=== PATIENT | male | born 1945 | race Caucasian/White ===

== ENCOUNTER 2019-04-21 07:11 | Day surgery (SDC) | payer OTHER | END 2019-04-21 11:00 | disposition home or self-care (01) | LOC: JASU-SURG 07:11 ==

== ENCOUNTER 2022-04-19 21:53 | Inpatient (IN) | payer OTHER ==
[2022-04-19 21:59] VITALS: BMI 27.3
[2022-04-19 23:14] LABS: BASO % 0.6 % (0-2.0); HEMATOCRIT 45.1 % (35.4-49); LYMPH % 25.3 % (8-40); MCH 29.9 pg (25.7-33.7); MCHC 33.3 g/dl (32.0-35.9); MEAN CELL VOLUME 89.7 fl (80-96); MEAN PLT VOLUME 8.6 fl (7.5-11.1); MONO % 8.4 % (3.8-10.2); NEUT % 63.7 % (42.8-82.8); PLATELET COUNT 174 10^3/uL (134-434); RBC 5.03 M/mm3 (4.00-5.60); RDW 14.3 % (11.9-15.9); WHITE BLOOD COUNT 7.4 K/mm3 (4.0-10.0)
[2022-04-19 23:16] LABS: VENOUS BASE EXCESS 0.9 mmol/L (-2-2); VENOUS O2 SATURATION 71.9 % (70-80); VENOUS PCO2 47.1 mmHg (38-52); VENOUS PH 7.373 (7.310-7.410)
[2022-04-19 23:22] LABS: INR 1.07 (0.83-1.09); PROTHROMBIN TIME (PATIENT) 12.3 SEC (9.7-13.0)
[2022-04-19 23:25] LABS: ACTIVATED PTT 33.2 SECONDS (25.2-36.5)
[2022-04-19 23:40] LABS: ALBUMIN 3.6 g/dl (3.4-5.0); BLOOD UREA NITROGEN 27.1 mg/dL (7-18); CALCIUM 10.4 mg/dL (8.5-10.1); MAGNESIUM 2.2 mg/dL (1.8-2.4)
[2022-04-19 23:43] LABS: CREATININE 1.1 mg/dL (0.55-1.3)
[2022-04-19 23:45] LABS: BILIRUBIN,TOTAL 0.5 mg/dL (0.2-1)
[2022-04-19 23:49] LABS: N-TERMINAL BNP 377.7 pg/ml (5-450)
[2022-04-20] MEDS ORDERED: DEXAMETHASONE SOD PHOSPHATE 4 MG/1 ML VIAL IVPUSH ONE (00:40)
[2022-04-20] MEDS ORDERED: DEXAMETHASONE SOD PHOSPHATE 10 MG/1 ML VIAL ONE (00:44)
[2022-04-20 02:48] LABS: URINE APPEARANCE CLEAR; URINE BILIRUBIN NEGATIVE (NEGATIVE); URINE COLOR YELLOW; URINE GLUCOSE (UA) NEGATIVE (NEGATIVE); URINE KETONE TRACE (NEGATIVE); URINE LEUK ESTERASE NEGATIVE (NEGATIVE); URINE NITRITE NEGATIVE (NEGATIVE); URINE PROTEIN NEGATIVE (NEGATIVE); URINE UROBILINOGEN 0.2 mg/dL (0.2-1.0)
[2022-04-20] MEDS ORDERED: ACETAMINOPHEN 325 MG TABLET (FP) PO PRN (03:16)
[2022-04-20] MEDS ORDERED: POLYETHYLENE GLYCOL (HEALTHYLAX) 3350 17 GM PACKET PO PRN (03:16)
[2022-04-20] MEDS ORDERED: DEXTROSE 5%-NORMAL SALINE 1,000 ML IV SCH (03:30)
[2022-04-20] MEDS ORDERED: guaiFENesin/D-METHORPHAN HB 10 ML UNIT-DOSE CUPS PO PRN (03:47)
[2022-04-20] MEDS ORDERED: METOPROLOL TARTRATE 50 MG TABLET (FP) ONE (04:03)
[2022-04-20] MEDS ORDERED: ALBUTEROL SO4 HFA INHALER IH PRN (05:39)
[2022-04-20] MEDS ORDERED: FOLIC ACID INJECTION - 1 MG, THIAMINE HCL 100 MG, MULTIVIT INJECTION ADULT 10 ML in SOD... IVPB ONE (05:41)
[2022-04-20] MEDS ORDERED: HEPARIN NA (PORCINE) 5,000 UNITS/ML 1ML VIAL ONE (06:18)
[2022-04-20] MEDS: HEPARIN NA (PORCINE) 5,000 UNITS/ML 1ML VIAL SQ SCH ×3 (06:32→21:44)
[2022-04-20] MEDS ORDERED: PNEUMOC 20-VAL CONJ-DIP CRM/PF 0.5 ML SYRINGE IM ONE (06:39)
[2022-04-20 06:46] LABS: BASO % 0.5 % (0-2.0); EOS % 0.1 % (0-4.5); HEMATOCRIT 44.5 % (35.4-49); LYMPH % 10.4 % (8-40); MCH 30.2 pg (25.7-33.7); MCHC 33.7 g/dl (32.0-35.9); MEAN CELL VOLUME 89.6 fl (80-96); MEAN PLT VOLUME 8.7 fl (7.5-11.1); MONO % 0.9 % (3.8-10.2); NEUT % 88.1 % (42.8-82.8); PLATELET COUNT 181 10^3/uL (134-434); RBC 4.96 M/mm3 (4.00-5.60); WHITE BLOOD COUNT 7.1 K/mm3 (4.0-10.0)
[2022-04-20 07:16] LABS: BLOOD UREA NITROGEN 24.7 mg/dL (7-18)
[2022-04-20 07:19] LABS: CREATININE 0.8 mg/dL (0.55-1.3); PHOSPHOROUS 2.5 mg/dL (2.5-4.9)
[2022-04-20] MEDS: METOPROLOL TARTRATE 50 MG TABLET (FP) PO SCH ×2 (09:18→21:44)
[2022-04-20] MEDS: LISINOPRIL 20 MG TABLET PO SCH (09:19)
[2022-04-20] MEDS ORDERED: METOPROLOL TARTRATE 50 MG TABLET (FP) PO SCH (10:00)
[2022-04-20] MEDS: amLODIPine BESYLATE 5 MG TABLET (FP) PO SCH (11:11)
[2022-04-20] MEDS ORDERED: REMDESIVIR 200 MG in SODIUM CHLORIDE 250 ML IVPB ONE (12:44)
[2022-04-20] MEDS ORDERED: SODIUM CHLORIDE 0.45% 1,000 ML IV SCH (13:30)
[2022-04-20] MEDS: LORazepam 1 MG TABLET PO PRN ×2 (18:27→23:40)
[2022-04-21] MEDS: HEPARIN NA (PORCINE) 5,000 UNITS/ML 1ML VIAL SQ SCH (06:45)
[2022-04-21 07:52] LABS: INR 1.03 (0.83-1.09); PROTHROMBIN TIME (PATIENT) 11.9 SEC (9.7-13.0)
[2022-04-21 07:53] LABS: ACTIVATED PTT 29.4 SECONDS (25.2-36.5)
[2022-04-21 09:26] VITALS: BP 147/103; PULSE 134; RESP 18; TEMP 97.8
[2022-04-21] MEDS: amLODIPine BESYLATE 5 MG TABLET (FP) PO SCH (09:26)
[2022-04-21] MEDS: METOPROLOL TARTRATE 50 MG TABLET (FP) PO SCH (09:26)
[2022-04-21] MEDS: LISINOPRIL 20 MG TABLET PO SCH (09:26)
[2022-04-21] MEDS ORDERED: THIAMINE HCL 100 MG TABLET (FP) PO SCH (10:00)
[2022-04-21] MEDS ORDERED: MULTIVITAMINS THER W-MINERALS COMBO TABLET (FP) PO SCH (10:00)
[2022-04-21] MEDS ORDERED: DEXAMETHASONE SOD PHOSPHATE 10 MG/1 ML VIAL IM SCH (10:00)
[2022-04-21] MEDS ORDERED: FOLIC ACID 1 MG TABLET (FP) PO SCH (10:00)
[2022-04-21] MEDS ORDERED: chlordiazePOXIDE HCL 25 MG CAPSULE PO SCH (12:00)
[2022-04-21] MEDS ORDERED: amLODIPine BESYLATE 5 MG TABLET (FP) PO SCH (12:36)
[2022-04-21] MEDS ORDERED: REMDESIVIR 100 MG in SODIUM CHLORIDE 250 ML IVPB SCH (13:00)
== END 2022-04-21 14:41 | disposition home or self-care (01) | DRG 177 ==
LOC: JER 21:53 → JERBED 04-20 00:41 → J4W 04-20 08:13
PROVIDERS: ADMIT Family Medicine; ATTEND Family Medicine
PROC: XW033E5 Introduction of Remdesivir Anti-infective into Peripheral Vein, Percutaneous Approach, New Technology Group 5 (ICD-10-PCS; principal; 2022-04-19)
DX: U07.1 COVID-19 (principal); J12.82 Pneumonia due to coronavirus disease 2019; I10 Essential (primary) hypertension; F10.220 Alcohol dependence with intoxication, uncomplicated; C44.91 Basal cell carcinoma of skin, unspecified; R09.02 Hypoxemia; E86.0 Dehydration; R06.02 Shortness of breath; R06.09 Other forms of dyspnea; R00.0 Tachycardia, unspecified; R68.83 Chills (without fever); R05.9 Cough, unspecified
CPT/HCPCS: 0241U-QW; 36415; 71045-TC-FY; 71275-TC; 80048; 80053; 81003; 82728; 82803; 83605; 83615; 83735; 83880; 84100; 84443; 84484; 85025; 85610; 85730; 86140; 86850; 86900; 86901; 87040; 87086; 93005; 93010; 99285-25; C9399; J1644; Q9967

== ENCOUNTER 2023-09-12 13:50 | Inpatient (IN) | payer OTHER ==
[2023-09-12] MEDS ORDERED: ROCURONIUM BROMIDE 50 MG/5 ML SYRINGE ONE (13:54)
[2023-09-12] MEDS ORDERED: fentaNYL CITRATE 250 MCG/5 ML VIAL ONE (13:57)
[2023-09-12] MEDS ORDERED: PHYTONADIONE 10 MG/1 ML AMP IVPB ONE (14:23)
[2023-09-12] MEDS ORDERED: PHYTONADIONE IVPB ONE (14:25)
[2023-09-12] MEDS ORDERED: DEXTROSE 5% IVPB ONE (14:25)
[2023-09-12] MEDS ORDERED: WATER IVPB ONE (14:25)
[2023-09-12] MEDS ORDERED: HUM PROTHROMBIN CPLX(PCC)4FACT 2,000 UNIT/74.7 ML VIAL IV ONE (14:25)
[2023-09-12 14:29] LABS: BASO % 0.9 % (0-2.0); EOS % 1.4 % (0-4.5); HEMATOCRIT 45.9 % (35.4-49); HEMOGLOBIN 15.1 GM/dL (11.7-16.9); LYMPH % 13.8 % (8-40); MCH 30.3 pg (25.7-33.7); MCHC 32.9 g/dl (32.0-35.9); MEAN PLT VOLUME 9.7 fl (7.5-11.1); MONO % 6.9 % (3.8-10.2); PLATELET COUNT 175 10^3/uL (134-434); RBC 4.99 M/mm3 (4.00-5.60); RDW 14.1 % (11.9-15.9); WHITE BLOOD COUNT 9.6 K/mm3 (4.0-10.0)
[2023-09-12] MEDS ORDERED: LABETALOL HCL 5 MG/1 ML (100MG/20 ML VIAL) IVPUSH ONE (14:30)
[2023-09-12] MEDS ORDERED: LABETALOL HCL 5 MG/1 ML (100MG/20 ML VIAL) ONE (14:33)
[2023-09-12] MEDS: SODIUM CHLORIDE 1,000 ML IV SCH (14:39)
[2023-09-12] MEDS ORDERED: PHYTONADIONE 10 MG/1 ML AMP ONE (14:42)
[2023-09-12 14:46] LABS: INR 2.56 (0.83-1.09); PROTHROMBIN TIME (PATIENT) 29.4 SEC (9.7-13.0)
[2023-09-12 14:48] LABS: ACTIVATED PTT 35.5 SECONDS (25.2-36.5)
[2023-09-12] MEDS ORDERED: levETIRAcetam 500 MG/5 ML INJECTION VIAL IVPB ONE ×2 (14:49→15:08)
[2023-09-12] MEDS ORDERED: ROCURONIUM BROMIDE 50 MG/5 ML VIAL IV ONE (14:58)
[2023-09-12] MEDS ORDERED: ETOMIDATE 20 MG/10 ML VIAL IVPUSH ONE (14:58)
[2023-09-12 15:04] LABS: POTASSIUM 4.4 mmol/L (3.5-5.1)
[2023-09-12 15:06] LABS: CALCIUM 10.4 mg/dL (8.5-10.1)
[2023-09-12 15:08] LABS: BLOOD UREA NITROGEN 18.5 mg/dL (7-18)
[2023-09-12] MEDS ORDERED: ROCURONIUM BROMIDE 50 MG/5 ML VIAL IVPUSH ONE (15:08)
[2023-09-12 15:10] LABS: CREATININE 0.8 mg/dL (0.55-1.3)
[2023-09-12 15:11] LABS: TOT PROT 7.4 g/dl (6.4-8.2)
[2023-09-12 15:12] LABS: BILIRUBIN,TOTAL 1.2 mg/dL (0.2-1)
[2023-09-12] MEDS ORDERED: PROPOFOL 1,000,000 MCG/100 ML VIAL ONE (15:19)
[2023-09-12] MEDS ORDERED: MANNITOL 25% 12.5 GM/50 ML VIAL IVPB ONE (15:34)
[2023-09-12] MEDS: PROPOFOL 1,000,000 MCG/100 ML VIAL IVPB SCH (15:37)
[2023-09-12 17:14] LABS: URINE APPEARANCE CLEAR; URINE BILIRUBIN NEGATIVE (NEGATIVE); URINE COLOR YELLOW; URINE GLUCOSE (UA) NEGATIVE (NEGATIVE); URINE KETONE NEGATIVE (NEGATIVE); URINE LEUK ESTERASE NEGATIVE (NEGATIVE); URINE NITRITE NEGATIVE (NEGATIVE); URINE PROTEIN TRACE (NEGATIVE); URINE UROBILINOGEN 0.2 mg/dL (0.2-1.0)
[2023-09-12] MEDS ORDERED: FOSPHENYTOIN SODIUM 1,000 MG in SODIUM CHLORIDE 100 ML IVPB ONE (17:48)
[2023-09-12 18:15] LABS: URINE APPEARANCE CLEAR; URINE BILIRUBIN NEGATIVE (NEGATIVE); URINE COLOR YELLOW; URINE GLUCOSE (UA) NEGATIVE (NEGATIVE); URINE KETONE NEGATIVE (NEGATIVE); URINE LEUK ESTERASE NEGATIVE (NEGATIVE); URINE NITRITE NEGATIVE (NEGATIVE); URINE PROTEIN TRACE (NEGATIVE); URINE UROBILINOGEN 0.2 mg/dL (0.2-1.0)
[2023-09-12] MEDS ORDERED: PNEUMOC 20-VAL CONJ-DIP CRM/PF 0.5 ML SYRINGE IM ONE (20:13)
[2023-09-12] MEDS: MUPIROCIN 2% TOPICAL OINTMENT FOR DECOLONIZATION NS SCH (21:54)
[2023-09-12] MEDS: CHLORHEXIDINE GLUCONATE 4% CLEANSER FOR DECOLONIZATION TP SCH (21:55)
[2023-09-12] MEDS: METOPROLOL TARTRATE 50 MG TABLET (FP) PO SCH (21:57)
[2023-09-13] MEDS: FOSPHENYTOIN SODIUM 100 MG/2 ML VIAL IVPUSH SCH ×3 (01:56→17:49)
[2023-09-13] MEDS ORDERED: ACETAMINOPHEN 1000 MG/100 ML BAG IVPB ONE (02:29)
[2023-09-13 07:21] LABS: BASO % 0.3 % (0-2.0); EOS % 0.1 % (0-4.5); HEMATOCRIT 39.9 % (35.4-49); HEMOGLOBIN 13.3 GM/dL (11.7-16.9); LYMPH % 8.9 % (8-40); MCH 30.7 pg (25.7-33.7); MCHC 33.5 g/dl (32.0-35.9); MEAN CELL VOLUME 91.9 fl (80-96); MEAN PLT VOLUME 9.1 fl (7.5-11.1); MONO % 8.8 % (3.8-10.2); NEUT % 81.9 % (42.8-82.8); PLATELET COUNT 152 10^3/uL (134-434); RBC 4.34 M/mm3 (4.00-5.60)
[2023-09-13 07:47] LABS: POTASSIUM 3.8 mmol/L (3.5-5.1)
[2023-09-13 07:51] LABS: BLOOD UREA NITROGEN 18.6 mg/dL (7-18)
[2023-09-13 07:54] LABS: CREATININE 0.9 mg/dL (0.55-1.3); PHOSPHOROUS 2.7 mg/dL (2.5-4.9)
[2023-09-13 07:55] LABS: BILIRUBIN,TOTAL 1.5 mg/dL (0.2-1); TOT PROT 5.9 g/dl (6.4-8.2)
[2023-09-13 08:07] LABS: CALCIUM 9.3 mg/dL (8.5-10.1)
[2023-09-13] MEDS: METOPROLOL TARTRATE 50 MG TABLET (FP) PO SCH ×2 (10:07→21:41)
[2023-09-13] MEDS: PROPOFOL 1,000,000 MCG/100 ML VIAL IVPB SCH (10:07)
[2023-09-13] MEDS: MUPIROCIN 2% TOPICAL OINTMENT FOR DECOLONIZATION NS SCH ×2 (10:08→21:41)
[2023-09-13] MEDS: ACETAMINOPHEN 1000 MG/100 ML BAG IVPB PRN ×2 (13:15→22:21)
[2023-09-13] MEDS: SODIUM CHLORIDE 1,000 ML IV SCH (17:49)
[2023-09-13] MEDS: CHLORHEXIDINE GLUCONATE 4% CLEANSER FOR DECOLONIZATION TP SCH (21:41)
[2023-09-14] MEDS: FOSPHENYTOIN SODIUM 100 MG/2 ML VIAL IVPUSH SCH ×3 (02:55→17:22)
[2023-09-14] MEDS: ACETAMINOPHEN 1000 MG/100 ML BAG IVPB PRN (05:33)
[2023-09-14 07:22] LABS: BASO % 0.3 % (0-2.0); EOS % 0.1 % (0-4.5); HEMATOCRIT 41.9 % (35.4-49); HEMOGLOBIN 13.9 GM/dL (11.7-16.9); LYMPH % 7.5 % (8-40); MCH 30.6 pg (25.7-33.7); MCHC 33.2 g/dl (32.0-35.9); MEAN CELL VOLUME 92.2 fl (80-96); MEAN PLT VOLUME 9.5 fl (7.5-11.1); MONO % 9.8 % (3.8-10.2); NEUT % 82.3 % (42.8-82.8); PLATELET COUNT 140 10^3/uL (134-434); RBC 4.54 M/mm3 (4.00-5.60); RDW 13.6 % (11.9-15.9); WHITE BLOOD COUNT 13.1 K/mm3 (4.0-10.0)
[2023-09-14 07:32] LABS: POTASSIUM 3.7 mmol/L (3.5-5.1)
[2023-09-14 07:37] LABS: CALCIUM 9.8 mg/dL (8.5-10.1)
[2023-09-14 07:38] LABS: ALBUMIN 3.1 g/dl (3.4-5.0); BLOOD UREA NITROGEN 13.6 mg/dL (7-18)
[2023-09-14 07:41] LABS: CREATININE 0.7 mg/dL (0.55-1.3); PHOSPHOROUS 2.3 mg/dL (2.5-4.9)
[2023-09-14 07:42] LABS: TOT PROT 6.4 g/dl (6.4-8.2)
[2023-09-14 08:05] LABS: BILIRUBIN,TOTAL 2.1 mg/dL (0.2-1)
[2023-09-14] MEDS: PROPOFOL 1,000,000 MCG/100 ML VIAL IVPB SCH (09:46)
[2023-09-14] MEDS: METOPROLOL TARTRATE 50 MG TABLET (FP) PO SCH (09:46)
[2023-09-14] MEDS: MUPIROCIN 2% TOPICAL OINTMENT FOR DECOLONIZATION NS SCH ×2 (09:46→21:34)
[2023-09-14] MEDS ORDERED: ACETAMINOPHEN 1000 MG/100 ML BAG IVPB STA (16:45)
[2023-09-14] MEDS: SODIUM CHLORIDE 1,000 ML IV SCH (19:15)
[2023-09-14] MEDS ORDERED: LABETALOL HCL 20 MG/4 ML VIAL IVPUSH ONE (20:14)
[2023-09-14] MEDS ORDERED: LABETALOL HCL 5 MG/1 ML (200MG/40ML VIAL) IVPB ONE (20:21)
[2023-09-14] MEDS: LABETALOL HCL 200 MG TABLET (FP) PO SCH ×2 (21:33→21:39)
[2023-09-14] MEDS: CHLORHEXIDINE GLUCONATE 4% CLEANSER FOR DECOLONIZATION TP SCH (21:34)
[2023-09-14] MEDS: ARTIFICIAL TEARS OPHTHALMIC DROPS OU SCH (21:34)
[2023-09-14] MEDS: LABETALOL HCL 100 MG TABLET (FP) PO SCH ×2 (21:45→22:20)
[2023-09-14] MEDS ORDERED: LABETALOL HCL 200 MG TABLET (FP) PO SCH (22:00)
[2023-09-15] MEDS: FOSPHENYTOIN SODIUM 100 MG/2 ML VIAL IVPUSH SCH ×3 (01:24→17:47)
[2023-09-15] MEDS ORDERED: ACETAMINOPHEN 325 MG TABLET (FP) PO PRN (05:45)
[2023-09-15 06:58] LABS: HEMATOCRIT 42.1 % (35.4-49); HEMOGLOBIN 13.9 GM/dL (11.7-16.9); MCH 30.2 pg (25.7-33.7); MCHC 32.9 g/dl (32.0-35.9); MEAN CELL VOLUME 91.9 fl (80-96); MEAN PLT VOLUME 9.5 fl (7.5-11.1); PLATELET COUNT 157 10^3/uL (134-434); RBC 4.58 M/mm3 (4.00-5.60); RDW 14.1 % (11.9-15.9); WHITE BLOOD COUNT 13.2 K/mm3 (4.0-10.0)
[2023-09-15 07:06] LABS: INR 1.11 (0.83-1.09); PROTHROMBIN TIME (PATIENT) 12.9 SEC (9.7-13.0)
[2023-09-15 07:25] LABS: POTASSIUM 3.5 mmol/L (3.5-5.1)
[2023-09-15 07:27] LABS: CALCIUM 10.2 mg/dL (8.5-10.1)
[2023-09-15 07:28] LABS: ALBUMIN 2.8 g/dl (3.4-5.0); BLOOD UREA NITROGEN 21.8 mg/dL (7-18); MAGNESIUM 2.2 mg/dL (1.8-2.4)
[2023-09-15 07:31] LABS: CREATININE 0.6 mg/dL (0.55-1.3); PHOSPHOROUS 2.2 mg/dL (2.5-4.9)
[2023-09-15 07:32] LABS: TOT PROT 6.2 g/dl (6.4-8.2)
[2023-09-15 07:48] LABS: BILIRUBIN,TOTAL 1.1 mg/dL (0.2-1)
[2023-09-15] MEDS ORDERED: NAPH,MB-DB/K PH,MBDB POWDER PACKET NGT ONE (08:15)
[2023-09-15] MEDS: MUPIROCIN 2% TOPICAL OINTMENT FOR DECOLONIZATION NS SCH ×2 (09:14→22:18)
[2023-09-15] MEDS: LABETALOL HCL 100 MG TABLET (FP) PO SCH ×2 (09:14→22:18)
[2023-09-15] MEDS: ARTIFICIAL TEARS OPHTHALMIC DROPS OU SCH ×2 (09:16→22:18)
[2023-09-15] MEDS: ACETAMINOPHEN 1000 MG/100 ML BAG IVPB PRN (18:20)
[2023-09-15] MEDS: CHLORHEXIDINE GLUCONATE 4% CLEANSER FOR DECOLONIZATION TP SCH (22:19)
[2023-09-16] MEDS: SODIUM CHLORIDE 1,000 ML IV SCH ×2 (02:10→15:11)
[2023-09-16] MEDS: FOSPHENYTOIN SODIUM 100 MG/2 ML VIAL IVPUSH SCH ×3 (02:11→17:46)
[2023-09-16 06:36] LABS: ARTERIAL BLD GAS O2 SATURATION 96.2 % (95-98); ARTERIAL BLOOD GAS BASE EXCESS 3.7 mmol/L (-2-2); ARTERIAL BLOOD GAS PO2 76.6 mmHg (80-100); ARTERIAL BLOOD GAS pH 7.479 (7.350-7.450)
[2023-09-16 06:39] LABS: BASO % 0.4 % (0-2.0); EOS % 1.1 % (0-4.5); HEMATOCRIT 40.7 % (35.4-49); HEMOGLOBIN 13.4 GM/dL (11.7-16.9); LYMPH % 8.4 % (8-40); MCH 30.5 pg (25.7-33.7); MCHC 32.8 g/dl (32.0-35.9); MEAN CELL VOLUME 92.8 fl (80-96); MEAN PLT VOLUME 9.7 fl (7.5-11.1); NEUT % 80.1 % (42.8-82.8); PLATELET COUNT 168 10^3/uL (134-434); RBC 4.38 M/mm3 (4.00-5.60); RDW 13.8 % (11.9-15.9); WHITE BLOOD COUNT 11.2 K/mm3 (4.0-10.0)
[2023-09-16 06:43] LABS: VENT MODE V-A/C; VENT RATE 18
[2023-09-16 07:02] LABS: POTASSIUM 3.6 mmol/L (3.5-5.1)
[2023-09-16 07:08] LABS: CALCIUM 9.8 mg/dL (8.5-10.1)
[2023-09-16 07:09] LABS: BLOOD UREA NITROGEN 25.3 mg/dL (7-18)
[2023-09-16 07:11] LABS: CREATININE 0.6 mg/dL (0.55-1.3)
[2023-09-16 07:12] LABS: PHOSPHOROUS 2.5 mg/dL (2.5-4.9)
[2023-09-16 07:14] LABS: BILIRUBIN,TOTAL 1.2 mg/dL (0.2-1); TOT PROT 6.1 g/dl (6.4-8.2)
[2023-09-16 08:28] LABS: ALBUMIN 2.6 g/dl (3.4-5.0)
[2023-09-16] MEDS: LABETALOL HCL 100 MG TABLET (FP) PO SCH ×2 (09:46→22:03)
[2023-09-16] MEDS: ARTIFICIAL TEARS OPHTHALMIC DROPS OU SCH ×2 (09:46→22:03)
[2023-09-16] MEDS: MUPIROCIN 2% TOPICAL OINTMENT FOR DECOLONIZATION NS SCH ×2 (09:46→22:03)
[2023-09-16] MEDS ORDERED: hydrALAZINE HCL 20 MG/ML VIAL IVPUSH PRN ×2 (10:20→10:22)
[2023-09-16] MEDS: ACETAMINOPHEN 1000 MG/100 ML BAG IVPB PRN (12:05)
[2023-09-16] MEDS ORDERED: METOPROLOL TARTRATE 5 MG/5 ML VIAL IVPUSH ONE (13:42)
[2023-09-16] MEDS ORDERED: METOPROLOL TARTRATE 5 MG/5 ML VIAL ONE (13:43)
[2023-09-16] MEDS: METOPROLOL TARTRATE 5 MG/5 ML VIAL IVPUSH PRN (16:47)
[2023-09-16] MEDS: IBUPROFEN 800 MG/8 ML IJ IVPB PRN (16:51)
[2023-09-16] MEDS: CHLORHEXIDINE GLUCONATE 4% CLEANSER FOR DECOLONIZATION TP SCH (22:03)
[2023-09-17] MEDS: METOPROLOL TARTRATE 5 MG/5 ML VIAL IVPUSH PRN ×3 (01:03→20:25)
[2023-09-17] MEDS: FOSPHENYTOIN SODIUM 100 MG/2 ML VIAL IVPUSH SCH ×3 (02:00→18:39)
[2023-09-17] MEDS: IBUPROFEN 800 MG/8 ML IJ IVPB PRN ×3 (05:34→21:36)
[2023-09-17 08:08] LABS: BASO % 0.5 % (0-2.0); EOS % 2.1 % (0-4.5); MCH 31.5 pg (25.7-33.7); MCHC 34.1 g/dl (32.0-35.9); MEAN CELL VOLUME 92.5 fl (80-96); MEAN PLT VOLUME 8.8 fl (7.5-11.1); MONO % 11.9 % (3.8-10.2); NEUT % 78.5 % (42.8-82.8); PLATELET COUNT 167 10^3/uL (134-434); POTASSIUM 3.5 mmol/L (3.5-5.1); RBC 4.11 M/mm3 (4.00-5.60); RDW 13.6 % (11.9-15.9); WHITE BLOOD COUNT 9.2 K/mm3 (4.0-10.0)
[2023-09-17 08:15] LABS: ALBUMIN 2.5 g/dl (3.4-5.0); BLOOD UREA NITROGEN 28.1 mg/dL (7-18); CALCIUM 9.9 mg/dL (8.5-10.1); MAGNESIUM 2.1 mg/dL (1.8-2.4)
[2023-09-17 08:18] LABS: CREATININE 0.6 mg/dL (0.55-1.3); PHOSPHOROUS 3.2 mg/dL (2.5-4.9)
[2023-09-17 08:19] LABS: BILIRUBIN,TOTAL 1.5 mg/dL (0.2-1); TOT PROT 6.2 g/dl (6.4-8.2)
[2023-09-17] MEDS: ARTIFICIAL TEARS OPHTHALMIC DROPS OU SCH ×2 (10:28→22:00)
[2023-09-17] MEDS: MUPIROCIN 2% TOPICAL OINTMENT FOR DECOLONIZATION NS SCH (10:28)
[2023-09-17] MEDS: LABETALOL HCL 100 MG TABLET (FP) PO SCH ×2 (10:46→22:00)
[2023-09-17] MEDS ORDERED: DEXTROSE 5%-0.45% SALINE 1,000 ML IV SCH (13:15)
[2023-09-17] MEDS: CHLORHEXIDINE GLUCONATE 4% CLEANSER FOR DECOLONIZATION TP SCH (22:00)
[2023-09-18] MEDS: METOPROLOL TARTRATE 5 MG/5 ML VIAL IVPUSH PRN ×4 (03:41→12:00)
[2023-09-18] MEDS: FOSPHENYTOIN SODIUM 100 MG/2 ML VIAL IVPUSH SCH ×3 (03:41→17:30)
[2023-09-18] MEDS ORDERED: METOPROLOL TARTRATE 25 MG TABLET (FP) PO ONE (04:32)
[2023-09-18 07:35] LABS: HEMATOCRIT 37.8 % (35.4-49); HEMOGLOBIN 12.9 GM/dL (11.7-16.9); MCH 31.4 pg (25.7-33.7); MCHC 34.1 g/dl (32.0-35.9); MEAN CELL VOLUME 92.1 fl (80-96); MEAN PLT VOLUME 8.9 fl (7.5-11.1); PLATELET COUNT 177 10^3/uL (134-434); RDW 14.3 % (11.9-15.9); WHITE BLOOD COUNT 8.9 K/mm3 (4.0-10.0)
[2023-09-18 07:49] LABS: POTASSIUM 3.5 mmol/L (3.5-5.1)
[2023-09-18 08:15] LABS: ALBUMIN 2.3 g/dl (3.4-5.0)
[2023-09-18 08:17] LABS: MAGNESIUM 2.2 mg/dL (1.8-2.4)
[2023-09-18 08:18] LABS: CALCIUM 9.9 mg/dL (8.5-10.1); CREATININE 0.6 mg/dL (0.55-1.3); PHOSPHOROUS 2.7 mg/dL (2.5-4.9)
[2023-09-18 08:20] LABS: BILIRUBIN,TOTAL 1.4 mg/dL (0.2-1); TOT PROT 5.9 g/dl (6.4-8.2)
[2023-09-18] MEDS: SCOPOLAMINE HYDROBROMIDE 1 PATCH PATCH.TD72 TD SCH (09:27)
[2023-09-18] MEDS: ARTIFICIAL TEARS OPHTHALMIC DROPS OU SCH ×2 (09:27→22:06)
[2023-09-18] MEDS: LABETALOL HCL 100 MG TABLET (FP) PO SCH ×2 (09:27→22:06)
[2023-09-18] MEDS: LABETALOL HCL 20 MG/4 ML VIAL IVPUSH PRN ×2 (09:45→16:27)
[2023-09-18] MEDS: IBUPROFEN 800 MG/8 ML IJ IVPB PRN (14:15)
[2023-09-18] MEDS ORDERED: PIPERACILLIN/TAZOB 4.5 GM 4.5 GM in DEXTROSE 5%-WATER 100 ML IVPB SCH (15:00)
[2023-09-18] MEDS: PIPERACILLIN/TAZOB 4.5 GM 4.5 GM in DEXTROSE 5%-WATER 100 ML IVPB SCH ×2 (15:29→22:05)
[2023-09-18] MEDS: CHLORHEXIDINE GLUCONATE 4% CLEANSER FOR DECOLONIZATION TP SCH (22:06)
[2023-09-19] MEDS: METOPROLOL TARTRATE 5 MG/5 ML VIAL IVPUSH PRN ×3 (00:22→20:16)
[2023-09-19] MEDS: IBUPROFEN 800 MG/8 ML IJ IVPB PRN ×2 (00:23→14:19)
[2023-09-19] MEDS: FOSPHENYTOIN SODIUM 100 MG/2 ML VIAL IVPUSH SCH ×3 (01:20→17:58)
[2023-09-19] MEDS: PIPERACILLIN/TAZOB 4.5 GM 4.5 GM in DEXTROSE 5%-WATER 100 ML IVPB SCH ×2 (03:00→09:26)
[2023-09-19 07:20] LABS: HEMATOCRIT 36.8 % (35.4-49); HEMOGLOBIN 12.4 GM/dL (11.7-16.9); MCH 31.4 pg (25.7-33.7); MCHC 33.7 g/dl (32.0-35.9); MEAN CELL VOLUME 93.1 fl (80-96); MEAN PLT VOLUME 8.9 fl (7.5-11.1); PLATELET COUNT 187 10^3/uL (134-434); RBC 3.95 M/mm3 (4.00-5.60); RDW 14.2 % (11.9-15.9); WHITE BLOOD COUNT 9.7 K/mm3 (4.0-10.0)
[2023-09-19 07:42] LABS: POTASSIUM 3.3 mmol/L (3.5-5.1)
[2023-09-19 07:47] LABS: ALBUMIN 2.1 g/dl (3.4-5.0); BLOOD UREA NITROGEN 31.4 mg/dL (7-18); MAGNESIUM 2.1 mg/dL (1.8-2.4)
[2023-09-19 07:50] LABS: CREATININE 0.7 mg/dL (0.55-1.3); PHOSPHOROUS 2.5 mg/dL (2.5-4.9)
[2023-09-19 07:51] LABS: TOT PROT 5.8 g/dl (6.4-8.2)
[2023-09-19 07:52] LABS: BILIRUBIN,TOTAL 2.3 mg/dL (0.2-1)
[2023-09-19] MEDS: LABETALOL HCL 100 MG TABLET (FP) PO SCH ×2 (09:27→21:08)
[2023-09-19] MEDS: ARTIFICIAL TEARS OPHTHALMIC DROPS OU SCH ×2 (09:27→21:08)
[2023-09-19] MEDS ORDERED: POTASSIUM PHOSPHATE 30 MM in DEXTROSE 5%-WATER - 500 ML IVPB ONE (14:30)
[2023-09-19] MEDS: CHLORHEXIDINE GLUCONATE 4% CLEANSER FOR DECOLONIZATION TP SCH (21:08)
[2023-09-20] MEDS: FOSPHENYTOIN SODIUM 100 MG/2 ML VIAL IVPUSH SCH ×3 (02:28→17:09)
[2023-09-20] MEDS: IBUPROFEN 800 MG/8 ML IJ IVPB PRN ×2 (03:31→21:51)
[2023-09-20 07:21] LABS: POTASSIUM 3.4 mmol/L (3.5-5.1)
[2023-09-20 07:24] LABS: BASO % 0.3 % (0-2.0); EOS % 2.7 % (0-4.5); HEMATOCRIT 36.4 % (35.4-49); HEMOGLOBIN 12.2 GM/dL (11.7-16.9); MCH 30.9 pg (25.7-33.7); MCHC 33.5 g/dl (32.0-35.9); MEAN CELL VOLUME 92.5 fl (80-96); MEAN PLT VOLUME 9.1 fl (7.5-11.1); PLATELET COUNT 193 10^3/uL (134-434); RBC 3.94 M/mm3 (4.00-5.60); RDW 14.1 % (11.9-15.9); WHITE BLOOD COUNT 8.8 K/mm3 (4.0-10.0)
[2023-09-20 07:39] LABS: ALBUMIN 2.1 g/dl (3.4-5.0); CALCIUM 9.9 mg/dL (8.5-10.1)
[2023-09-20 07:40] LABS: BLOOD UREA NITROGEN 31.8 mg/dL (7-18); MAGNESIUM 2.2 mg/dL (1.8-2.4)
[2023-09-20 07:42] LABS: BILIRUBIN,DIRECT 2.1 mg/dL (0.0-0.2); CREATININE 0.7 mg/dL (0.55-1.3)
[2023-09-20 07:43] LABS: PHOSPHOROUS 2.6 mg/dL (2.5-4.9)
[2023-09-20 07:44] LABS: BILIRUBIN,TOTAL 2.9 mg/dL (0.2-1); TOT PROT 5.7 g/dl (6.4-8.2)
[2023-09-20] MEDS: KCL 10 MEQ IVPB 10 MEQ/100 ML INFUS.BAG IVPB SCH ×2 (08:56→10:00)
[2023-09-20] MEDS: LABETALOL HCL 100 MG TABLET (FP) PO SCH ×2 (09:01→21:50)
[2023-09-20] MEDS: ARTIFICIAL TEARS OPHTHALMIC DROPS OU SCH ×2 (09:01→21:45)
[2023-09-20] MEDS: CHLORHEXIDINE GLUCONATE 4% CLEANSER FOR DECOLONIZATION TP SCH (21:45)
[2023-09-21] MEDS: FOSPHENYTOIN SODIUM 100 MG/2 ML VIAL IVPUSH SCH ×3 (01:49→17:03)
[2023-09-21 07:32] LABS: BASO % 0.6 % (0-2.0); EOS % 3.4 % (0-4.5); HEMATOCRIT 37.4 % (35.4-49); HEMOGLOBIN 12.6 GM/dL (11.7-16.9); LYMPH % 9.2 % (8-40); MCH 31.1 pg (25.7-33.7); MCHC 33.5 g/dl (32.0-35.9); MEAN CELL VOLUME 92.8 fl (80-96); MEAN PLT VOLUME 9.1 fl (7.5-11.1); MONO % 11.5 % (3.8-10.2); NEUT % 75.3 % (42.8-82.8); PLATELET COUNT 219 10^3/uL (134-434); RBC 4.04 M/mm3 (4.00-5.60); WHITE BLOOD COUNT 8.7 K/mm3 (4.0-10.0)
[2023-09-21 07:45] LABS: POTASSIUM 3.4 mmol/L (3.5-5.1)
[2023-09-21 07:48] LABS: CALCIUM 10.8 mg/dL (8.5-10.1)
[2023-09-21 07:49] LABS: ALBUMIN 2.1 g/dl (3.4-5.0); BLOOD UREA NITROGEN 33.3 mg/dL (7-18); MAGNESIUM 2.3 mg/dL (1.8-2.4)
[2023-09-21 07:52] LABS: CREATININE 0.6 mg/dL (0.55-1.3); PHOSPHOROUS 2.6 mg/dL (2.5-4.9)
[2023-09-21 07:53] LABS: TOT PROT 5.9 g/dl (6.4-8.2)
[2023-09-21] MEDS ORDERED: POTASSIUM CHLORIDE ORAL LIQUID 20 MEQ/15 ML PO ONE (08:00)
[2023-09-21 08:16] LABS: BILIRUBIN,TOTAL 2.9 mg/dL (0.2-1)
[2023-09-21] MEDS: PANTOPRAZOLE SODIUM 40 MG VIAL IVPUSH SCH (09:05)
[2023-09-21] MEDS: LABETALOL HCL 100 MG TABLET (FP) PO SCH ×2 (09:05→23:15)
[2023-09-21] MEDS: SCOPOLAMINE HYDROBROMIDE 1 PATCH PATCH.TD72 TD SCH (09:06)
[2023-09-21] MEDS: ARTIFICIAL TEARS OPHTHALMIC DROPS OU SCH ×2 (09:07→22:56)
[2023-09-21] MEDS: IBUPROFEN 800 MG/8 ML IJ IVPB PRN (12:24)
[2023-09-21] MEDS: METOPROLOL TARTRATE 5 MG/5 ML VIAL IVPUSH PRN ×2 (12:34→17:10)
[2023-09-21] MEDS: CHLORHEXIDINE GLUCONATE 4% CLEANSER FOR DECOLONIZATION TP SCH (22:56)
[2023-09-22] MEDS: FOSPHENYTOIN SODIUM 100 MG/2 ML VIAL IVPUSH SCH ×3 (03:25→17:23)
[2023-09-22] MEDS: METOPROLOL TARTRATE 5 MG/5 ML VIAL IVPUSH PRN ×2 (03:27→06:47)
[2023-09-22 07:01] LABS: HEMOGLOBIN 12.7 GM/dL (11.7-16.9); MCH 30.3 pg (25.7-33.7); MCHC 32.5 g/dl (32.0-35.9); MEAN CELL VOLUME 93.3 fl (80-96); MEAN PLT VOLUME 9.5 fl (7.5-11.1); PLATELET COUNT 245 10^3/uL (134-434); RBC 4.18 M/mm3 (4.00-5.60); WHITE BLOOD COUNT 13.5 K/mm3 (4.0-10.0)
[2023-09-22 08:08] LABS: POTASSIUM 3.9 mmol/L (3.5-5.1)
[2023-09-22 08:10] LABS: CALCIUM 10.2 mg/dL (8.5-10.1)
[2023-09-22 08:11] LABS: ALBUMIN 2.2 g/dl (3.4-5.0); MAGNESIUM 2.2 mg/dL (1.8-2.4)
[2023-09-22 08:14] LABS: CREATININE 0.6 mg/dL (0.55-1.3); PHOSPHOROUS 3.1 mg/dL (2.5-4.9)
[2023-09-22 08:16] LABS: TOT PROT 6.2 g/dl (6.4-8.2)
[2023-09-22 08:28] LABS: BILIRUBIN,TOTAL 2.3 mg/dL (0.2-1)
[2023-09-22] MEDS: LABETALOL HCL 100 MG TABLET (FP) PO SCH ×2 (09:10→21:24)
[2023-09-22] MEDS: PANTOPRAZOLE SODIUM 40 MG VIAL IVPUSH SCH (09:10)
[2023-09-22] MEDS: ARTIFICIAL TEARS OPHTHALMIC DROPS OU SCH ×2 (09:12→21:24)
[2023-09-22] MEDS: CEFTRIAXONE 1 GM in DEXTROSE 5%-WATER - 50 ML IVPB SCH (13:36)
[2023-09-22 14:32] VITALS: BMI 29.3
[2023-09-22] MEDS: CHLORHEXIDINE GLUCONATE 4% CLEANSER FOR DECOLONIZATION TP SCH (21:25)
[2023-09-22] MEDS: IBUPROFEN 800 MG/8 ML IJ IVPB PRN (23:53)
[2023-09-23] MEDS: FOSPHENYTOIN SODIUM 100 MG/2 ML VIAL IVPUSH SCH ×3 (01:20→17:14)
[2023-09-23] MEDS: METOPROLOL TARTRATE 5 MG/5 ML VIAL IVPUSH PRN ×3 (01:22→21:49)
[2023-09-23 06:37] LABS: BASO % 0.8 % (0-2.0); EOS % 1.8 % (0-4.5); HEMATOCRIT 37.8 % (35.4-49); HEMOGLOBIN 12.3 GM/dL (11.7-16.9); LYMPH % 10.5 % (8-40); MCH 30.4 pg (25.7-33.7); MCHC 32.5 g/dl (32.0-35.9); MEAN CELL VOLUME 93.3 fl (80-96); MEAN PLT VOLUME 9.4 fl (7.5-11.1); MONO % 9.8 % (3.8-10.2); NEUT % 77.1 % (42.8-82.8); PLATELET COUNT 244 10^3/uL (134-434); RBC 4.05 M/mm3 (4.00-5.60); RDW 14.3 % (11.9-15.9); WHITE BLOOD COUNT 11.9 K/mm3 (4.0-10.0)
[2023-09-23 07:06] LABS: POTASSIUM 3.6 mmol/L (3.5-5.1)
[2023-09-23 07:10] LABS: ALBUMIN 2.1 g/dl (3.4-5.0); BLOOD UREA NITROGEN 37.9 mg/dL (7-18); CALCIUM 10.4 mg/dL (8.5-10.1); MAGNESIUM 2.1 mg/dL (1.8-2.4)
[2023-09-23 07:13] LABS: CREATININE 0.6 mg/dL (0.55-1.3); PHOSPHOROUS 2.8 mg/dL (2.5-4.9)
[2023-09-23 07:15] LABS: TOT PROT 5.9 g/dl (6.4-8.2)
[2023-09-23] MEDS: CEFTRIAXONE 1 GM in DEXTROSE 5%-WATER - 50 ML IVPB SCH (09:39)
[2023-09-23] MEDS: PANTOPRAZOLE SODIUM 40 MG VIAL IVPUSH SCH (09:40)
[2023-09-23] MEDS: LABETALOL HCL 100 MG TABLET (FP) PO SCH ×2 (09:40→21:02)
[2023-09-23] MEDS: ARTIFICIAL TEARS OPHTHALMIC DROPS OU SCH ×2 (09:52→21:02)
[2023-09-23] MEDS: IBUPROFEN 800 MG/8 ML IJ IVPB PRN (21:01)
[2023-09-23] MEDS: CHLORHEXIDINE GLUCONATE 4% CLEANSER FOR DECOLONIZATION TP SCH (21:02)
[2023-09-24] MEDS: METOPROLOL TARTRATE 5 MG/5 ML VIAL IVPUSH PRN ×3 (01:01→21:10)
[2023-09-24] MEDS: FOSPHENYTOIN SODIUM 100 MG/2 ML VIAL IVPUSH SCH ×3 (01:01→17:37)
[2023-09-24 06:27] LABS: EOS % 1.5 % (0-4.5); HEMATOCRIT 39.4 % (35.4-49); HEMOGLOBIN 12.8 GM/dL (11.7-16.9); LYMPH % 7.2 % (8-40); MCH 30.6 pg (25.7-33.7); MCHC 32.6 g/dl (32.0-35.9); MEAN CELL VOLUME 93.8 fl (80-96); MEAN PLT VOLUME 9.7 fl (7.5-11.1); MONO % 8.8 % (3.8-10.2); NEUT % 81.5 % (42.8-82.8); PLATELET COUNT 239 10^3/uL (134-434); WHITE BLOOD COUNT 11.3 K/mm3 (4.0-10.0)
[2023-09-24 06:44] LABS: POTASSIUM 3.7 mmol/L (3.5-5.1)
[2023-09-24 06:47] LABS: CALCIUM 10.2 mg/dL (8.5-10.1)
[2023-09-24 06:48] LABS: ALBUMIN 2.2 g/dl (3.4-5.0); BLOOD UREA NITROGEN 33.9 mg/dL (7-18); MAGNESIUM 2.2 mg/dL (1.8-2.4)
[2023-09-24 06:51] LABS: CREATININE 0.5 mg/dL (0.55-1.3); PHOSPHOROUS 2.3 mg/dL (2.5-4.9)
[2023-09-24] MEDS: PANTOPRAZOLE SODIUM 40 MG VIAL IVPUSH SCH (09:22)
[2023-09-24] MEDS: CEFTRIAXONE 1 GM in DEXTROSE 5%-WATER - 50 ML IVPB SCH (09:22)
[2023-09-24] MEDS: LABETALOL HCL 100 MG TABLET (FP) PO SCH ×2 (09:22→21:10)
[2023-09-24] MEDS: SCOPOLAMINE HYDROBROMIDE 1 PATCH PATCH.TD72 TD SCH (09:23)
[2023-09-24] MEDS: NAPH,MB-DB/K PH,MBDB POWDER PACKET NGT SCH ×2 (11:38→21:10)
[2023-09-24] MEDS: ARTIFICIAL TEARS OPHTHALMIC DROPS OU SCH ×2 (11:42→21:11)
[2023-09-24] MEDS: IBUPROFEN 800 MG/8 ML IJ IVPB PRN (11:52)
[2023-09-24] MEDS: CHLORHEXIDINE GLUCONATE 4% CLEANSER FOR DECOLONIZATION TP SCH (21:11)
[2023-09-25] MEDS: FOSPHENYTOIN SODIUM 100 MG/2 ML VIAL IVPUSH SCH ×3 (01:14→17:55)
[2023-09-25] MEDS: IBUPROFEN 800 MG/8 ML IJ IVPB PRN ×2 (05:06→13:43)
[2023-09-25] MEDS: METOPROLOL TARTRATE 5 MG/5 ML VIAL IVPUSH PRN (05:06)
[2023-09-25 06:40] LABS: BASO % 0.7 % (0-2.0); EOS % 1.8 % (0-4.5); HEMATOCRIT 38.3 % (35.4-49); HEMOGLOBIN 12.6 GM/dL (11.7-16.9); LYMPH % 10.1 % (8-40); MCH 30.6 pg (25.7-33.7); MCHC 32.9 g/dl (32.0-35.9); MEAN PLT VOLUME 9.4 fl (7.5-11.1); MONO % 8.7 % (3.8-10.2); NEUT % 78.7 % (42.8-82.8); PLATELET COUNT 261 10^3/uL (134-434); POTASSIUM 3.7 mmol/L (3.5-5.1); RBC 4.12 M/mm3 (4.00-5.60); RDW 13.9 % (11.9-15.9); WHITE BLOOD COUNT 9.5 K/mm3 (4.0-10.0)
[2023-09-25 06:43] LABS: MAGNESIUM 2.1 mg/dL (1.8-2.4)
[2023-09-25 06:45] LABS: CREATININE 0.5 mg/dL (0.55-1.3); PHOSPHOROUS 2.1 mg/dL (2.5-4.9)
[2023-09-25 06:47] LABS: BILIRUBIN,TOTAL 1.9 mg/dL (0.2-1); TOT PROT 5.9 g/dl (6.4-8.2)
[2023-09-25] MEDS ORDERED: NAPH,MB-DB/K PH,MBDB POWDER PACKET PO SCH (07:30)
[2023-09-25] MEDS: LABETALOL HCL 100 MG TABLET (FP) PO SCH ×2 (09:20→21:03)
[2023-09-25] MEDS: PANTOPRAZOLE SODIUM 40 MG VIAL IVPUSH SCH (09:20)
[2023-09-25] MEDS: CEFTRIAXONE 1 GM in DEXTROSE 5%-WATER - 50 ML IVPB SCH (09:20)
[2023-09-25] MEDS: ARTIFICIAL TEARS OPHTHALMIC DROPS OU SCH ×2 (09:20→21:02)
[2023-09-25] MEDS: NAPH,MB-DB/K PH,MBDB POWDER PACKET NGT SCH ×2 (13:33→21:02)
[2023-09-25] MEDS ORDERED: NAPH,MB-DB/K PH,MBDB POWDER PACKET NGT SCH (14:00)
[2023-09-25] MEDS: CHLORHEXIDINE GLUCONATE 4% CLEANSER FOR DECOLONIZATION TP SCH (21:02)
[2023-09-26] MEDS: METOPROLOL TARTRATE 5 MG/5 ML VIAL IVPUSH PRN ×2 (02:00→12:54)
[2023-09-26] MEDS: FOSPHENYTOIN SODIUM 100 MG/2 ML VIAL IVPUSH SCH ×2 (02:07→09:50)
[2023-09-26] MEDS: NAPH,MB-DB/K PH,MBDB POWDER PACKET NGT SCH (06:22)
[2023-09-26 07:11] LABS: POTASSIUM 3.7 mmol/L (3.5-5.1)
[2023-09-26 07:20] LABS: ALBUMIN 2.2 g/dl (3.4-5.0); BLOOD UREA NITROGEN 28.7 mg/dL (7-18); CALCIUM 10.1 mg/dL (8.5-10.1)
[2023-09-26 07:23] LABS: CREATININE 0.6 mg/dL (0.55-1.3); PHOSPHOROUS 2.3 mg/dL (2.5-4.9)
[2023-09-26 07:24] LABS: TOT PROT 6.5 g/dl (6.4-8.2)
[2023-09-26 08:32] LABS: BILIRUBIN,TOTAL 1.8 mg/dL (0.2-1)
[2023-09-26] MEDS: CEFTRIAXONE 1 GM in DEXTROSE 5%-WATER - 50 ML IVPB SCH (09:49)
[2023-09-26] MEDS: PANTOPRAZOLE SODIUM 40 MG VIAL IVPUSH SCH (09:49)
[2023-09-26] MEDS: ARTIFICIAL TEARS OPHTHALMIC DROPS OU SCH (09:50)
[2023-09-26] MEDS: LABETALOL HCL 100 MG TABLET (FP) PO SCH (09:50)
[2023-09-26] MEDS ORDERED: NAPH,MB-DB/K PH,MBDB POWDER PACKET NGT SCH (10:00)
[2023-09-26 12:48] VITALS: TEMP 101.2
[2023-09-26] MEDS ORDERED: DEXMEDETOMIDINE PREMIX 400 MCG/100 ML BAG IVPB SCH (13:00)
[2023-09-26] MEDS: IBUPROFEN 800 MG/8 ML IJ IVPB PRN (13:50)
[2023-09-26] MEDS ORDERED: morphine CARPU-JECT 4 MG/1 ML DISP.SYRIN IVPUSH ONE (14:37)
[2023-09-26] MEDS ORDERED: MORPHINE SULFATE/0.9% NACL/PF 100 MG/100 ML BAG IVPB SCH (14:45)
[2023-09-26] MEDS ORDERED: MORPHINE 100 MG/100 ML MG ONE (15:02)
[2023-09-26] MEDS ORDERED: MORPHINE 100 MG/100 ML MG IVPB SCH (15:14)
[2023-09-26 15:30] VITALS: BP 125/68; PULSE 98; RESP 16
== END 2023-09-26 18:00 | disposition expired | DRG 64 ==
LOC: JER 13:50 → JERBED 15:45 → JICU 18:51
PROVIDERS: ADMIT Family Medicine; ATTEND Family Medicine
PROC: 5A1955Z Respiratory Ventilation, Greater than 96 Consecutive Hours (ICD-10-PCS; principal; 2023-09-12)
PROC: 0BH17EZ Insertion of Endotracheal Airway into Trachea, Via Natural or Artificial Opening (ICD-10-PCS; 2023-09-12)
DX: I62.01 Nontraumatic acute subdural hemorrhage (principal); J15.211 Pneumonia due to Methicillin susceptible Staphylococcus aureus; J96.00 Acute respiratory failure, unspecified whether with hypoxia or hypercapnia; D68.32 Hemorrhagic disorder due to extrinsic circulating anticoagulants; E87.0 Hyperosmolality and hypernatremia; R40.20 Unspecified coma; I10 Essential (primary) hypertension; I48.91 Unspecified atrial fibrillation; R74.01 Elevation of levels of liver transaminase levels
CPT/HCPCS: 36415; 36600; 70450-TC; 71045-TC-FY; 80053; 80061; 81003; 82248; 82550; 82553; 82803; 83036; 83735; 84100; 84484; 85025; 85027; 85610; 85730; 87070; 87086; 87186; 87205; 87635; 93005; 93010; 94002; 99291; J7168